=== PATIENT | male | born 1960 | race African-American/Black ===

== ENCOUNTER 2016-07-25 06:48 | Inpatient (IN) | payer OTHER ==
--- NOTE | ~2016-07-25 | DS ---
Unit #: [id number] #: [id number] Patient: GIANNI BARBER [id number] [facility] [address] [place] [address] [id number] MR#: [id number] NAME: GIANNI BARBER ROOM: 30 Age: 56 Sex: M Admission Date: 07/25/2016 : 1960 Discharge Date: 07/27/2016 Attending Physician: Dylan Conte M.D. DISCHARGE SUMMARY REASON FOR ADMISSION The patient is a 56-year-old male, admitted in transfer from [facility], where he had presented with command auditory hallucinations. HOSPITAL COURSE The patient was admitted to the [address] [place] [address] unit and placed on suicide precautions. He was begun on Risperdal 2 mg at h.s. and tolerated the medication without complaint. The patient reported significant improvement during his brief stay in the hospital with initiation of Risperdal. He reported that the voices had gone. It was suspicion of this physician that some of his psychotic symptoms may have been related to his abuse of cocaine. Whatever the case, the patient was in good spirits when seen by this physician on 07/27/2016 and requested discharge citing a need to return to work. Discharge was ordered. FINAL DIAGNOSES Chronic paranoid schizophrenia; cocaine use disorder. DISPOSITION ON DISCHARGE The patient is discharged on the following medications: Risperdal 3 mg at h.s. for psychosis. DISCHARGE INSTRUCTIONS No dietary or physical restrictions were placed upon the patient at the time of discharge. FOLLOWUP Followup will take place through the auspices of community mental health resources. PROGNOSIS The patient's prognosis is considered good. Dictated by... Dylan Conte M.D. CB/sherman TD: 07/27/2016 13:54 JOB #: [id number] Unit #: [id number] #: [id number] Patient: GIANNI BARBER DISCHARGE SUMMARY Page 1 of 1 X Dylan Conte MD X DISCHARGE SUMMARY
--- NOTE | ~2016-07-25 | A ---
[facility] Nutrition Therapy DATE: 07/27/16 Patient: GIANNI BARBER Physician: EMILY Address: [address] Room/Bed: [address], Zip: [place] [address] Admit Date: 07/25/16 Date of : [birth year] Height: 5 11 Weight: [phone] NUTRITIONAL ASSESSMENT: REASON: LOW BMI (18.8) PATIENT ADMITTED FOR DEPRESSION, SI, AND DRUG USE PMH: NONE Anthropometrics: HT: 5'11", WT: 135#, BMI: 18.8 Labs: 07/26/16- GLU: 155 Meds: RISPERDAL, DESYREL, VISTARIL Assessment: PATIENT IS A 56 Y/O MALE ADMITTED FOR DEPRESSION, SI, AND DRUG USE. PATIENT IS CURRENTLY EMPLOYED, LIVES ALONE, SMOKES 1/2 PPD, AND HAS FREQUENT CANNABIS AND COCAINE USE. PATIENT IS NOTED TO BE IRRITABLE AND ARGUMENTATIVE. UPON ADMIT PATIENT STATED A POOR APPETITE AND A LOT OF WEIGHT LOSS LATELY (20# IN THE LAST YEAR). WEIGHT HX PER [employer] SHOWED WEIGHTS OF ~145#. IT IS NOTED THAT HIS GIRLFRIEND 1 YEAR AGO, WHICH MAY HAVE LED TO SOME WEIGHT LOSS/DECREASED APPETITE. PRIOR TO ADMIT PATIENT HAD BEEN NON-COMPLIANT WITH MEDICATIONS, AND HE HAD REFUSED HIS MEDICATIONS UPON ADMIT. THERE ARE NO SKIN OR GI ISSUES NOTED ATT. PATIENT IS ON A REGULAR DIET, AND HE DID NOT SCORE ANY NUTRITIONAL RISK POINTS. Dx: INADEQUATE NUTRIENT INTAKE R/T CURRENT CONDITION, DRUG USE AEB LOW BMI, SELF-REPORTED WEIGHT LOSS AND DECREASED APPETITE Intervention: REGULAR DIET, LARGE PORTION ENTREES, MEDS PER MD, PSYCH Monitoring, Evaluation and Goals: 1. ADEQUATE PO INTAKES >50% OF MEALS 2. PREVENT, CORRECT MICRO/MACRO NUTRIENT DEFICIENCIES 3. PROMOTE A STEADY WEIGHT GAIN TOWARDS A HEALTHY BMI OF 19-25 MONITOR: WEIGHTS, LABS, PO/FLUID INTAKES Recommendations: 1. CONTINUE REGULAR DIET TOLERATED. WILL INCREASE ENTREES TO LARGE PORTIONS. OFFER SNACKS BETWEEN MEALS 2. ENCOURAGE ADEQUATE PO AND FLUID INTAKES 3. OBTAIN WEIGHTS ROUTINELY (EVERY 3-4 DAYS) [facility] Nutrition Therapy DATE: 07/27/16 Patient: GIANNI BARBER Physician: EMILY Address: [address] Room/Bed: [address], Zip: [place] [address] Admit Date: 07/25/16 Date of : 60 Height: 5 11 Weight: [phone] 4. IF PO INTAKES ARE BELOW 50% OF MEALS PLEASE ORDER ENSURE BID TO PROMOTE ADEQUATE KCAL AND PROTEIN INTAKES RD TO F/U PER PROTOCOL AND PRN R/T PATIENT MILDLY COMPROMISED Respectfully, HUONG PARR RD, LD [facility] cc: client file
--- NOTE | ~2016-07-25 | PN ---
Unit #: [id number] #: [id number] Patient: GIANNI BARBER [id number] [facility] [address] [place] [address] [id number] MR#: [id number] NAME: GIANNI BRABER ROOM: 30 Age: 56 Sex: M Admission Date: 07/25/2016 : 1960 Attending Physician: Dylan Conte M.D. Admitting Physician: Raul Cisneros PROGRESS NOTES DATE 07/26/2016 DISCUSSION The patient is awake and alert today. He is pleasant and cooperative but states he has been off medication. He does not recall any medication he is taking nor does his chart seem to indicate any medication he has taken in the past, but he does report that (1) __ medication his voices worsen. I will go ahead and start Risperdal 3 mg at h.s. temporarily to address the patient's complains of ongoing auditory hallucinations. Dictated by... Dylan Conte M.D. CB/darryl TD: 07/26/2016 14:21 JOB #: [id number] KARLIE PROGRESS NOTES Page 1 of 1 X Dylan Conte MD X PROGRESS NOTE
--- NOTE | ~2016-07-25 | HP ---
Unit #: [id number] #: [id number] Patient: GIANNI BARBER [id number] [place] [address] [id number] MR#: [id number] NAME: GIANNI BARBER ROOM: P130 Age: 56 Sex: M Admission Date: 07/25/2016 : 1960 Attending Physician: Dylan Conte M.D. Admitting Physician: Dylan Conte M.D. HISTORY AND PHYSICAL HISTORY OF PRESENT ILLNESS Gianni is a 56 year old admitted to [address] [place] [address] because of his drug use. He also reports depression and verbalizes wanting to hurt himself. PAST MEDICAL HISTORY History of illicit substance abuse to include cocaine. PAST SURGICAL HISTORY Nothing reported. ALLERGIES No known drug allergies. SOCIAL HISTORY Smokes one-half pack per day. Drinks alcohol socially. Admits to using marijuana regularly and has a history of regular cocaine use. FAMILY HISTORY Medically noncontributory. REVIEW OF SYSTEMS CONSTITUTIONAL: No fever or chills. HEENT: Denies any sore throat, ear pain or runny nose. CARDIOVASCULAR: Denies chest pain, irregular heart rhythm or palpitations. CHEST: Denies shortness of breath or cough. No hemoptysis. GASTROINTESTINAL: Denies nausea, vomiting, diarrhea or chronic constipation. ENDOCRINE: Denies history of increased thirst or urination. No recent significant weight loss or gain. GENITOURINARY: Denies dysuria, frequency, or hematuria. SKIN: Denies any rashes. HEMATOLOGIC: Denies history of increased bleeding or bruising. MUSCULOSKELETAL: Denies any hot, swollen joints. No generalized muscle pain. NEUROLOGIC: Denies problems with vision or speech. No frequent, severe headaches. No numbness, tingling or weakness in any extremities. Denies loss of bladder or bowel control. CURRENT MEDICATIONS 1. Desyrel 50 mg q.h.s. 2. Vistaril p.r.n. 3. Milk of Magnesia p.r.n. 4. Maalox p.r.n. Unit #: [id number] #: [id number] Patient: GIANNI BARBER 5. Tylenol p.r.n. PHYSICAL EXAMINATION GENERAL: Alert, thin gentleman. No apparent distress. VITAL SIGNS: Blood pressure 156/96, heart rate 80, respirations 16, and temperature 98.6. WEIGHT: Not recorded. HEIGHT: 5 feet 11 inches. SKIN: Warm and dry without rash or lesion. HEENT: Normocephalic. TMs not viewed. Oral and nasal passages clear. Conjunctivae clear. PERRLA. EOMs intact. NECK: Supple without lymphadenopathy or thyromegaly. HEART: Regular rate and rhythm without murmur. LUNGS: Clear. ABDOMEN: Soft, nontender. : Not done. EXTREMITIES: No evidence of cyanosis, clubbing or edema. Moves all without focal deficit. NEUROLOGICAL: Grossly within normal limits. Cranial Nerves: II: Visual razo are intact. III, IV AND : Extraocular movements are intact. Pupils are equal, round and reactive to light. V: Facial sensation is grossly normal. VII: Facial movements and expression are normal. VIII: Auditory acuity grossly intact. IX, X: Uvula is midline. Phonation is normal. XI: Patient shrugs shoulders and turns head normally. XII: Tongue protrudes in the midline. Sensory and Motor Function: Sensory and motor sensation is grossly normal. Motor: moves all extremities well. Coordination: Gait is normal. Deep Tendon Reflexes: Intact. IMPRESSION Psychiatric admission. RECOMMENDATIONS PSYCHIATRIC: Per psychiatrist. MEDICAL: I see no contraindication to participate in this facility's activities. MEDICAL PROGNOSIS Good. MEDICAL CONDITION Stable. Dictated by... Sanam Morales P.A.-C. for Raul Curiel/darryl TD: 07/26/2016 11:31 JOB #: [id number] Unit #: [id number] #: [id number] Patient: GIANNI BARBER HISTORY AND PHYSICAL Page 1 of 1 X Sanam Morales HISTORY AND PHYSICAL
[~2016-07-25 06:48] MED LIST: DEPAKOTE PO; LORTAB PO; ZOCOR PO
[2016-07-26 12:32] LABS: BASOPHIL% 0.6 % (0-2.5); EOSINOPHIL# 0.1 X10e3 (0-0.7); EOSINOPHIL% 2.8 % (0.0-7.0); HEMATOCRIT 38.3 % (38.0-50.0); HEMOGLOBIN 12.6 gm/dL (13.0-16.0); LYMPHOCYTE# 1.3 X10e3 (1.0-3.5); LYMPHOCYTE% 42.2 % (17.0-45.0); MEAN CELL VOLUME 93.8 FL (83-96); MEAN CORPUSCULAR HEMOGLOBIN 30.8 PG (28-34); MEAN CORPUSCULAR HGB CONC 32.8 g/dL (30-36); MONOCYTE# 0.4 X10e3 (0-1.0); MONOCYTE% 11.6 % (3.0-12.0); NEUTROPHIL# 1.3 X10e3 (1.5-7.1); NEUTROPHIL% 42.8 % (40-75); PLATELET COUNT 160 X10e3 (140-420); RED BLOOD COUNT 4.08 X10e (3.90-5.60); RED CELL DISTRIBUTION WIDTH 14.8 % (11.0-15.5); WHITE BLOOD COUNT 3.1 X10e3 (4.0-10.5)
[2016-07-26 12:37] LABS: DIFF IND NO
[2016-07-26 12:54] LABS: ALBUMIN SERUM 3.6 g/dL (3.5-5.0); BILIRUBIN,TOTAL 1.4 mg/dL (0.2-2.0); CALCIUM SERUM 9.1 mg/dL (8.4-10.2); GLOM FILT RATE Estimated 97.1 mL/min (>60); POTASSIUM 3.9 mmol/L (3.5-5.1); PROTEIN TOTAL SERUM 6.1 g/dL (6.0-8.3); THYROID STIMULATING HORMONE 0.41 uIU/ml (0.34-5.60)
[2016-07-26 13:01] LABS: FREE THYROXIN (T4) 0.94 ng/dL (0.58-1.64)
== END 2016-07-27 18:59 | disposition home or self-care (01) | DRG 885 ==
LOC: P1S 08:32
PROVIDERS: Specialist
DX: F20.0 Paranoid schizophrenia (principal); F14.10 Cocaine abuse, uncomplicated; F17.210 Nicotine dependence, cigarettes, uncomplicated
CPT/HCPCS: 80053; 84439; 84443; 85025